=== PATIENT | male | born 1950 | race Caucasian/White ===

== ENCOUNTER 2019-02-12 14:22 | Emergency (ER) | payer OTHER ==
[~2019-02-12] VITALS: Ht 165.1 cm; Wt 81.6 kg
[2019-02-12 14:35] VITALS: BP 189/117
--- NOTE | 2019-02-12 14:39 | NUR ---
68/M BIB SELF C/O LAC TO RIGHT KNEE WHILE [place]MIMG TREES AT WORK TODAY. LAST TDAP OVER 15 YRS AGO. BP ELEVATED 189/117, ERMD AWARE. BLEEDING CONTROLLED, RIGHT KNEE WRAPPED WITH GAUZE AND BANDAGE. HX: HTN. PATIENT STATES PAIN OF 5/10 AT THIS TIME. PATIENT POSITIONED FOR COMFORT; HOB ELEVATED; BEDRAILS UP X1; BED DOWN. ER MD MADE AWARE OF PT STATUS.
--- NOTE | 2019-02-12 14:44 | NUR ---
TESSIE Moncada is evaluating the patient at bedside.
[2019-02-12] MEDS ORDERED: IBUPROFEN 600 MG TAB PO ONE (14:50)
[2019-02-12] MEDS ORDERED: LIDOCAINE MPF 1% 10 MG/ML VIAL INJ ONE ×2 (14:50→15:55)
--- NOTE | 2019-02-12 15:10 | NUR ---
IRRIGATED & CLEANED LAC WOUND TO R KNEE BY MEDARDO SILVA. PT TOLERATED PROCEDURE WELL.
--- NOTE | 2019-02-12 15:31 | NUR ---
Yesenia dumont in EDM - 02/12/19 at 1557 by MED1 SUTURE LAC WOUND TO R KNEE DONE BY TESSIE CASANOVA . PT TOLERATED PROCEDURE WELL.
[2019-02-12] MEDS ORDERED: LIDOCAINE MPF 1% 5 ML ONE (15:51)
--- NOTE | 2019-02-12 15:58 | NUR ---
SUTURE LAC WOUND TO R KNEE DONE BY TESSIE CASANOVA . PT TOLERATED PROCEDURE WELL.
[2019-02-12] MEDS ORDERED: BACITRACIN OINT 500 UNITS/GM PKT TP ONE ×2 (16:10)
--- NOTE | 2019-02-12 16:32 | NUR ---
IRRIGATED AND APPLIED BASITRACIN AND NON ADHERENT DRESSING TO RIGHT UPPER KNEE WITHOUT ANY ISSUES. APPLIED GAUZE ROLL AROUND KNEE WELL.
[2019-02-12 16:35] VITALS: BP 149/80
--- NOTE | 2019-02-12 16:35 | NUR ---
Patient discharged with v/s stable. Written and verbal after care instructions given and explained. Patient alert, oriented and verbalized understanding of instructions. Ambulatory with steady gait. All questions addressed prior to discharge. ID band removed. Patient advised to follow up with PMD. Rx of KEFLEX, IBUPROFEN & BACITRACIN given. Patient educated on indication of medication including possible reaction and side effects. Opportunity to ask questions provided and answered.
== END 2019-02-12 16:35 | disposition home or self-care (01) ==
LOC: MED 14:22
DX: S81.011A Laceration without foreign body, right knee, initial encounter (principal); S71.111A Laceration without foreign body, right thigh, initial encounter; W22.8XXA Striking against or struck by other objects, initial encounter; Y93.89 Activity, other specified; Y92.89 Other specified places as the place of occurrence of the external cause; Y99.8 Other external cause status
CPT/HCPCS: 12004; 90471; 90715; 99283; J2001

== ENCOUNTER 2019-02-15 12:11 | Emergency (ER) | payer OTHER ==
[~2019-02-15] VITALS: Ht 167.6 cm; Wt 90.7 kg
--- NOTE | 2019-02-15 12:16 | NUR ---
Patient ambulated to bed 2 with family. RN evaluating patient at bedside.
--- NOTE | 2019-02-15 12:20 | NUR ---
PT TO ED REQUEST FOR RECHECK FOR SUTURES LOCATED TO R OUTER THIGH. SUTURES INTACT. NO DRIANAGE NOTED. MILD SWELLING NOTED TO SITE. DENIES PAIN. IN BED FOR MD MURRAY.
[2019-02-15 12:21] VITALS: BP 151/95
[2019-02-15 13:12] VITALS: BP 151/95
--- NOTE | 2019-02-15 13:12 | NUR ---
Patient discharged with v/s stable. Written and verbal after care instructions given and explained. Patient verbalized understanding. Ambulatory with steady gait. All questions addressed prior to discharge. Advised to follow up IN 9-12 DAYS FOR SUTURE REMOVAL.
== END 2019-02-15 13:12 | disposition home or self-care (01) ==
LOC: MED 12:11
DX: S81.011D Laceration without foreign body, right knee, subsequent encounter (principal); Z88.0 Allergy status to penicillin; X58.XXXD Exposure to other specified factors, subsequent encounter
CPT/HCPCS: 99281

== ENCOUNTER 2019-02-24 13:01 | Emergency (ER) | payer OTHER ==
[~2019-02-24] VITALS: Ht 163.8 cm; Wt 91.2 kg
[2019-02-24 13:10] VITALS: BP 154/79
--- NOTE | 2019-02-24 13:16 | NUR ---
Patient ambulated to bed 9. RN evaluating patient at bedside.
--- NOTE | 2019-02-24 13:19 | NUR ---
68/M PRESENTS TO ED WITH FAMILY FOR SUTURE REMOVAL ON A APPROX 6CM LAC REPAIRED WITH SUTURES, WHICH WERE PLACED HERE ON 02/12/19. WELL APPROXIMATED, WITH MINIMAL DRIED SCAB, PINK SURROUNDING, NO ERYTHEMA, NO DISCHARGE/DRAINAGE. PT DENIES FEVER. PT AWAKE AND ALERT, SKIN NORMAL COLOR WARM AND DRY, RR EVEN AND UNLABORED. HX HTN
--- NOTE | 2019-02-24 13:19 | NUR ---
Dr. Mijares is evaluating the patient at bedside.
[2019-02-24] MEDS ORDERED: NEOMYCIN/POLYMYXIN/BACITRACIN 0.9 GM/1 PKT TP ONE (13:55)
--- NOTE | 2019-02-24 14:08 | NUR ---
REMOVED SUTURES FROM PT'S RIGHT ANTERIOR DISTAL PORTION OF HIS THIGH WITHOUT INCIDENT, THEN COVER WOUND WITH BACITRACIN
[2019-02-24 14:41] VITALS: BP 148/82
--- NOTE | 2019-02-24 14:42 | NUR ---
Patient discharged with v/s stable. Written and verbal after care instructions given and explained. Patient verbalized understanding. Ambulatory with steady gait. All questions addressed prior to discharge. Advised to follow up with PMD.
== END 2019-02-24 14:42 | disposition home or self-care (01) ==
LOC: MED 13:01
DX: S81.011D Laceration without foreign body, right knee, subsequent encounter (principal); Z88.0 Allergy status to penicillin; X58.XXXD Exposure to other specified factors, subsequent encounter
CPT/HCPCS: 99282